=== PATIENT | female | born 2000 | race American Indian/Alaskan Native ===

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

== ENCOUNTER 2019-03-14 15:18 | Inpatient (IN) | payer MEDICAID ==
[2019-03-14] MEDS ORDERED: Sodium Chloride 0.9% 1,000 ML IV ONE (15:58)
--- NOTE | 2019-03-14 15:58 | EDM.PDOC ---
ED HPI GENERAL MEDICAL PROBLEM - General Chief Complaint: Skin Complaint Stated Complaint: ABCESS ON STOMACH AND BACK LEG Time Seen by Provider: 03/14/19 15:51 - History of Present Illness INITIAL COMMENTS - FREE TEXT/NARRATIVE: HISTORY AND PHYSICAL: History of present illness: Patient is a 19-year-old female presents with concern of abdominal wall abscess with spontaneous drainage and cellulitis and worsening over last several days she denies fever chills nausea vomiting Review of systems: As per history of present illness and below otherwise all systems reviewed and negative. Past medical history: As per history of present illness and as reviewed below otherwise noncontributory. Surgical history: As per history of present illness and as reviewed below otherwise noncontributory. Social history: No reported history of drug or alcohol abuse. Family history: As per history of present illness and as reviewed below otherwise noncontributory. Physical exam: HEENT: Atraumatic, normocephalic, pupils reactive, negative for conjunctival pallor or scleral icterus, mucous membranes moist, throat clear, neck supple, nontender, trachea midline. Lungs: Clear to auscultation, breath sounds equal bilaterally, chest nontender. Heart: S1S2, regular, negative for clicks, rubs, or JVD. Abdomen: Soft, nondistended, area of erythema lower abdomen with spontaneous drainage from subcutaneous abscess this area of erythema is approximately 8-10 cm in diameter with warmth and induration noticed.. Negative for masses or hepatosplenomegaly. Negative for costovertebral tenderness. Pelvis: Stable nontender. Genitourinary: Deferred. Rectal: Deferred. Extremities: Atraumatic, negative for cords or calf pain. Neurovascular unremarkable. Neuro: Awake, alert, oriented. Cranial nerves II through XII unremarkable. Cerebellum unremarkable. Motor and sensory unremarkable throughout. Exam nonfocal. Diagnostics: CBC CMP wound culture blood culture 2 ultrasound abdominal wall hCG Therapeutics: Saline 1 L bolus in vancomycin 1 g IV Impression: #1 cellulitis abdominal wall with abscess Definitive disposition and diagnosis as appropriate pending reevaluation and review of above. Abdominal Pain Score (Numeric/FACES): 8 - Related Data Allergies Allergy/AdvReac Type Severity Reaction Status Date / Time No Known Allergies Allergy Verified 03/14/19 15:42 Home Meds: Home Meds . 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: Reports: Other (See Below) Other ADVICE CLERK History: Hyperplasia Musculoskeletal History: Reports: None Neurological History: Reports: None Psychiatric History: Reports: Anxiety, Bipolar, Depression Endocrine/Metabolic History: Reports: Obesity/BMI 30+ Hematologic History: Reports: None Immunologic History: Reports: None Oncologic (Cancer) History: Reports: None Dermatologic History: Reports: None - Infectious Disease History Infectious Disease History: Reports: Chicken Pox - Past Surgical History Head Surgeries/Procedures: Reports: None HEENT Surgical History: Reports: Adenoidectomy, Myringotomy w Tube(s), Tonsillectomy Cardiovascular Surgical History: Reports: None Respiratory Surgical History: Reports: None GI Surgical History: Reports: None Female Surgical History: Reports: D&C Other Female Surgeries/Procedures: hysteroscopy x3 Neurological Surgical History: Reports: None Musculoskeletal Surgical History: Reports: None Oncologic Surgical History: Reports: None Dermatological Surgical History: Reports: None Social & Family History - Family History Family Medical History: Noncontributory Cardiac: Reports: Hypertension, [place] Neurological: Reports: CVA Endocrine/Metabolic: Reports: Diabetes, type II - Tobacco Use Smoking Status *Q: Never Smoker Second Hand Smoke Exposure: No - Caffeine Use Caffeine Use: Reports: Coffee Other Caffeine Use: 5-7 daily Caffeine Use Comment: 2drinks/day - Recreational Drug Use Recreational Drug Use: Yes Recreational Drug Type: Reports: Marijuana/Hashish, Methamphetamine Recreational Drug Use Frequency: Weekly ED ROS GENERAL - Review of Systems Review Of Systems: ROS reveals no pertinent complaints other than HPI. ED EXAM, SKIN/RASH Exam: See Below (See dictation) Course - Vital Signs Last Recorded V/S: Last Vital Signs Temp 37.3 C 03/14/19 15:43 Pulse 107 H 03/14/19 15:43 Resp 16 03/14/19 15:43 BP 128/80 03/14/19 15:43 Pulse Ox 99 03/14/19 15:43 - Orders/Labs/Meds Orders: Active Orders 24 hr Category Date Time Status Abdomen Ltd [US] Stat Exams 03/14/19 15:54 Taken COMPREHENSIVE METABOLIC PN,CMP [CHEM] Stat Lab 03/14/19 Ordered CULTURE BLOOD [BC] Stat Lab 03/14/19 15:54 Ordered CULTURE BLOOD [BC] Stat Lab 03/14/19 15:54 Ordered CULTURE WOUND [RM] Stat Lab 03/14/19 16:03 Received HCG QUALITATIVE,URINE [URCHEM] Stat Lab 03/14/19 15:53 Ordered INR,PT,PROTHROMBIN TIME [COAG] Stat Lab 03/14/19 15:53 Ordered Blood Culture x2 Reflex Set [OM.PC] Stat Oth 03/14/19 15:53 Ordered Labs: Laboratory Tests 03/14/19 Range/Units 16:09 WBC 17.19 H (4.0-11.0) K/uL RBC 5.07 (4.30-5.90) M/uL Hgb 13.2 (12.0-16.0) g/dL Hct 39.4 (36.0-46.0) % MCV 77.7 L (80.0-98.0) fL MCH 26.0 L (27.0-32.0) pg MCHC 33.5 (31.0-37.0) g/dL RDW Std Deviation 40.1 (28.0-62.0) fl RDW Coeff of Elysia 14 (11.0-15.0) % Plt Count 337 (150-400) K/uL MPV 10.50 (7.40-12.00) fL Neut % (Auto) 79.3 (48.0-80.0) % Lymph % (Auto) 10.9 L (16.0-40.0) % [place] % (Auto) 8.8 (0.0-15.0) % Eos % (Auto) 0.8 (0.0-7.0) % Baso % (Auto) 0.2 (0.0-1.5) % Neut # (Auto) 13.6 H (1.4-5.7) K/uL Lymph # (Auto) 1.9 (0.6-2.4) K/uL [place] # (Auto) 1.5 H (0.0-0.8) K/uL Eos # (Auto) 0.1 (0.0-0.7) K/uL Baso # (Auto) 0.0 (0.0-0.1) K/uL Nucleated RBC % 0.0 /100WBC Nucleated RBCs # 0 K/uL Meds: Medications Discontinued Medications Generic Name Dose Route Start Last Admin Trade Name Erlinda PRN Reason Stop Dose Admin Sodium Chloride 1,000 mls @ 999 mls/hr 03/14/19 15:58 03/14/19 17:28 Normal Saline IV 03/14/19 16:58 250 mls/hr STAT ONE Infusion Vancomycin HCl 1 gm/ Sodium 250 mls @ 250 mls/hr 03/14/19 15:58 03/14/19 17: 26 Chloride IV 03/14/19 16:57 250 mls/hr ONETIME ONE Administration Sodium Chloride Confirm 03/14/19 16:57 03/14/19 17:25 Normal Saline Administered 03/14/19 16:58 Not Given Dose 250 mls @ as directed .ROUTE .STK-MED ONE Vancomycin HCl Confirm 03/14/19 16:57 03/14/19 17:25 Vancomycin Administered 03/14/19 16:58 Not Given Dose 1 gm .ROUTE .STK-MED ONE Departure - Departure Time of Disposition: 17:35 Disposition: Admitted As Inpatient 66 Condition: Good Clinical Impression: Cellulitis, Abscess - Discharge Information Referrals: PCP,None [Primary Care Provider] - Forms: ED Department Discharge - My Orders Last 24 Hours: My Active Orders 03/14/19 COMPREHENSIVE METABOLIC PN,CMP [CHEM] Stat 03/14/19 15:53 HCG QUALITATIVE,URINE [URCHEM] Stat INR,PT,PROTHROMBIN TIME [COAG] Stat Blood Culture x2 Reflex Set [OM.PC] Stat 03/14/19 15:54 Abdomen Ltd [US] Stat CULTURE BLOOD [BC] Stat CULTURE BLOOD [BC] Stat 03/14/19 16:03 CULTURE WOUND [RM] Stat - Assessment/Plan Last 24 Hours: My Active Orders 03/14/19 COMPREHENSIVE METABOLIC PN,CMP [CHEM] Stat 03/14/19 15:53 HCG QUALITATIVE,URINE [URCHEM] Stat INR,PT,PROTHROMBIN TIME [COAG] Stat Blood Culture x2 Reflex Set [OM.PC] Stat 03/14/19 15:54 Abdomen Ltd [US] Stat CULTURE BLOOD [BC] Stat CULTURE BLOOD [BC] Stat 03/14/19 16:03 CULTURE WOUND [RM] Stat
[2019-03-14] MEDS ORDERED: Vancomycin 1 GM SDV ONE (16:57)
[2019-03-14] MEDS ORDERED: Sodium Chloride 0.9% 250 ML ONE (16:57)
[2019-03-14] MEDS ORDERED: oxyCODONE 5 MG Tab PO PRN (17:52)
[2019-03-14] MEDS ORDERED: Acetaminophen 325 MG Tab PO PRN (17:52)
[2019-03-14] MEDS ORDERED: Polyethylene Glycol 3350 Powder 17 GM Packet PO PRN (17:52)
[2019-03-14] MEDS ORDERED: Docusate Sodium 100 MG Cap PO PRN (17:52)
[2019-03-14] MEDS ORDERED: Morphine 10 MG/ML Syringe IVPUSH PRN (17:52)
[2019-03-14] MEDS ORDERED: Ondansetron 4 MG Tab.DIS PO PRN (17:52)
[2019-03-14 18:47] LABS: CHLORIDE,CL 101 mmol/L (98-107); SODIUM,NA 135 mmol/L (136-145)
--- NOTE | 2019-03-14 19:35 | PCM.HP ---
H&P History of Present Illness - General Date of Service: 03/14/19 Admit Problem/Dx: Admission Diagnosis/Problem Admission Diagnosis/Problem Cellulitis - History of Present Illness Initial Comments - Free Text/Narative: 19 y/o female with history of polysubstance abuse who presented to the ER complaining of worsening abdominal pain. States that about 2-3 days she had a pustule on her pannus area and she popped it, however, soon after that she started noticing erythema, warmth and pain on her pannus area. In addition, started to notice some additional drainage. Denies any dysuria, diarrhea, blood in stool. No nausea, vomiting. Rates pain 8/10, worse with direct pressure. No rashes or pain anywhere else on body. In the ER , she received one dose of vancomycin and abdominal U/S which results are pending. Abdominal Pain Score (Numeric/FACES): 8 - Related Data Allergies/Adverse Reactions: Allergies Allergy/AdvReac Type Severity Reaction Status Date / Time No Known Allergies Allergy Verified 03/14/19 15:42 Home Medications: Home Meds . 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 (See Below) Other OB/BYN History: Hyperplasia Musculoskeletal History: Reports: None Neurological History: Reports: None Psychiatric History: Reports: Anxiety, Bipolar, Depression Endocrine/Metabolic History: Reports: Obesity/BMI 30+ Hematologic History: Reports: None Immunologic History: Reports: None Oncologic (Cancer) History: Reports: None Dermatologic History: Reports: None - Infectious Disease History Infectious Disease History: Reports: Chicken Pox - Past Surgical History Head Surgeries/Procedures: Reports: None HEENT Surgical History: Reports: Adenoidectomy, Myringotomy w Tube(s), Tonsillectomy Cardiovascular Surgical History: Reports: None Respiratory Surgical History: Reports: None GI Surgical History: Reports: None Female Surgical History: Reports: D&C Other Female Surgeries/Procedures: hysteroscopy x3 Neurological Surgical History: Reports: None Musculoskeletal Surgical History: Reports: None Oncologic Surgical History: Reports: None Dermatological Surgical History: Reports: None Social & Family History - Family History Family Medical History: Noncontributory Cardiac: Reports: Hypertension, [place] Neurological: Reports: CVA Endocrine/Metabolic: Reports: Diabetes, type II - Tobacco Use Smoking Status *Q: Never Smoker Second Hand Smoke Exposure: No - Caffeine Use Caffeine Use: Reports: Coffee Other Caffeine Use: 5-7 daily Caffeine Use Comment: 2drinks/day - Recreational Drug Use Recreational Drug Use: Yes Recreational Drug Type: Reports: Marijuana/Hashish, Methamphetamine Recreational Drug Use Frequency: Weekly H&P Review of Systems - Review of Systems: Review Of Systems: See Below Exam - Exam Exam: See Below - Vital Signs Vital Signs: Last Vital Signs Temp 37.3 C 03/14/19 15:43 Pulse 88 03/14/19 19:12 Resp 16 03/14/19 19:12 BP 124/74 03/14/19 19:12 Pulse Ox 98 03/14/19 19:12 Weight: 97.522 kg - Exam General: Alert, Oriented, Cooperative HEENT: Conjunctiva Clear, Mucosa Moist & Mabel Lungs: Clear to Auscultation, Normal Respiratory Effort. No: Crackles, Wheezing Cardiovascular: Regular Rate, Regular Rhythm GI/Abdominal Exam: Other (erythematous, warm area of cellulitis with area of enduration and drainage.) Extremities: Normal Inspection, No Pedal Edema Skin: Warm, Dry - Patient Data Lab Results Last 24 hrs: Laboratory Results - last 24 hr 03/14/19 03/14/19 03/14/19 Range/Units 16:09 18:16 18:16 WBC 17.19 H (4.0-11.0) K/uL RBC 5.07 (4.30-5.90) M/uL Hgb 13.2 (12.0-16.0) g/dL Hct 39.4 (36.0-46.0) % MCV 77.7 L (80.0-98.0) fL MCH 26.0 L (27.0-32.0) pg MCHC 33.5 (31.0-37.0) g/dL RDW Std Deviation 40.1 (28.0-62.0) fl RDW Coeff of Elysia 14 (11.0-15.0) % Plt Count 337 (150-400) K/uL MPV 10.50 (7.40-12.00) fL Neut % (Auto) 79.3 (48.0-80.0) % Lymph % (Auto) 10.9 L (16.0-40.0) % [place] % (Auto) 8.8 (0.0-15.0) % Eos % (Auto) 0.8 (0.0-7.0) % Baso % (Auto) 0.2 (0.0-1.5) % Neut # (Auto) 13.6 H (1.4-5.7) K/uL Lymph # (Auto) 1.9 (0.6-2.4) K/uL [place] # (Auto) 1.5 H (0.0-0.8) K/uL Eos # (Auto) 0.1 (0.0-0.7) K/uL Baso # (Auto) 0.0 (0.0-0.1) K/uL Nucleated RBC % 0.0 /100WBC Nucleated RBCs # 0 K/uL INR 1.20 Sodium 135 L (136-145) mmol/L Potassium 3.6 (3.5-5.1) mmol/L Chloride 101 (98-107) mmol/L Carbon Dioxide 25.1 (21.0-32.0) mmol/L BUN 6 L (7.0-18.0) mg/dL Creatinine 0.7 (0.6-1.0) mg/dL Est Cr Clr Drug Dosing 110.70 mL/min Estimated GFR (MDRD) > 60.0 ml/min Glucose 102 (74-106) mg/dL Calcium 8.4 L (8.5-10.1) mg/dL Total Bilirubin 0.7 (0.2-1.0) mg/dL AST 10 L (15-37) IU/L ALT 9 L (14-63) IU/L Alkaline Phosphatase 96 (46-116) U/L Total Protein 7.4 (6.4-8.2) g/dL Albumin 2.7 L (3.4-5.0) g/dL Globulin 4.7 H (2.6-4.0) g/dL Albumin/Globulin Ratio 0.6 L (0.9-1.6) Result Diagrams: 03/14/19 16:09 03/14/19 18:16 Problem List Initiated/Reviewed/Updated: Yes Orders Last 24hrs: Active Orders 24 hr Category Date Time Status Patient Status [ADT] Stat ADT 03/14/19 17:37 Active Antiembolic Devices [RC] PER UNIT ROUTINE Care 03/14/19 17:54 Active Intake and Output [RC] QSHIFT Care 03/14/19 17:52 Active Notify Provider Consults [RC] ASDIRECTED Care 03/14/19 19:27 Active Oxygen Therapy [RC] PRN Care 03/14/19 17:52 Active Up ad Lillian [RC] ASDIRECTED Care 03/14/19 17:52 Active VTE/DVT Education [RC] PER UNIT ROUTINE Care 03/14/19 17:52 Active Vital Signs [RC] Q4H Care 03/14/19 17:52 Active Consult to Physician [CONS] Routine Cons 03/14/19 19:26 Active Regular Diet [DIET] Diet 03/14/19 Breakfast Active Abdomen Ltd [US] Stat Exams 03/14/19 15:54 Taken CULTURE BLOOD [BC] Stat Lab 03/14/19 18:16 Received CULTURE BLOOD [BC] Stat Lab 03/14/19 18:47 Received CULTURE WOUND [RM] Stat Lab 03/14/19 16:03 Received HCG QUALITATIVE,URINE [URCHEM] Stat Lab 03/14/19 15:53 Ordered UA RFX JEROMY AND CULT IF INDIC [URIN] Routine Lab 03/14/19 18:36 Ordered Acetaminophen [Tylenol] Med 03/14/19 17:52 Active 650 mg PO Q4H PRN Docusate Sodium [Colace] Med 03/14/19 17:52 Active 100 mg PO BID PRN Morphine Med 03/14/19 17:52 Active 2 mg IVPUSH Q2H PRN Ondansetron [Zofran ODT] Med 03/14/19 17:52 Active 4 mg PO Q4H PRN Polyethylene Glycol 3350 [MiraLAX] Med 03/14/19 17:52 Active 17 gm PO DAILY PRN Vancomycin 1 gm Med 03/15/19 06:00 Active Vancomycin 500 mg Sodium Chloride 0.9% [Normal Saline] 500 ml IV Q12H oxyCODONE Med 03/14/19 17:52 Active 5 mg PO Q4H PRN Blood Culture x2 Reflex Set [OM.PC] Stat Oth 03/14/19 15:53 Ordered Sequential Compression Device [OM.PC] Per Unit Routine Oth 03/14/19 17:53 Ordered Resuscitation Status Routine Resus Stat 03/14/19 17:52 Ordered Medication Orders Acetaminophen (Tylenol) 650 mg PO Q4H PRN PRN Reason: Pain (Mild 1-3)/fever Docusate Sodium (Colace) 100 mg PO BID PRN PRN Reason: Constipation Vancomycin HCl 1 gm/Vancomycin HCl 500 mg/ Sodium Chloride 500 mls @ 333 mls/ hr IV Q12H DASHA Morphine Sulfate (Morphine) 2 mg IVPUSH Q2H PRN PRN Reason: Pain (severe 7-10) Stop: 03/15/19 17:53 Ondansetron HCl (Zofran Odt) 4 mg PO Q4H PRN PRN Reason: nausea, able to take PO Oxycodone HCl (Oxycodone) 5 mg PO Q4H PRN PRN Reason: Pain (moderate 4-6) Polyethylene Glycol (Miralax) 17 gm PO DAILY PRN PRN Reason: Constipation Assessment/Plan Comment:: A: 1. Cellulitis 2. Leukocytosis P: 1. Cellulitis with possible abscess- pending U/S results. Will continue with Vancomycin 1 g IV Q12H for now. I consulted with General Surgery who will see patient in the morning. Dispo;1-2 days
--- NOTE | 2019-03-14 19:52 | US ---
Indication: Lower abdominal abscess Technique: Ultrasound abdomen limited with color Doppler analysis. Comparison: None Findings/Impression: In the right lower abdomen region of interest is an irregular area of fluid/edema measuring 7 x 4 x 2 cm. Hyperemic consistent with inflammation is present about the fluid. This lesion would be consistent with a phlegmon. There is no defined abscess at this time. No other abnormality. Dictated by Elvin Long MD @ Mar 14 2019 7:46PM Signed by Dr. Elvin Long @ Mar 14 2019 7:51PM
[2019-03-15] MEDS ORDERED: Vancomycin 1 GM SDV ONE (04:52)
[2019-03-15] MEDS ORDERED: Sodium Chloride 0.9% 250 ML ONE (04:53)
[2019-03-15 05:58] LABS: CHLORIDE,CL 103 mmol/L (98-107); SODIUM,NA 138 mmol/L (136-145)
[2019-03-15] MEDS ORDERED: Vancomycin 1 GM, Vancomycin 500 MG in Sodium Chloride 0.9% 500 ML IV SCH (06:00)
[2019-03-15] MEDS ORDERED: Potassium Chloride 20 MEQ Tab.ER PO ONE (09:11)
--- NOTE | 2019-03-15 09:19 | PCM.SN ---
- Free Text/Narrative Note: pt seen, chart reviewed; abd pannus and L lower thigh sub cutaneous infection, will take to OR for surgery i/d tomorrow; please no heparin, and also npo tonight; thanks for the cx; [id number]
--- NOTE | 2019-03-15 11:19 | CONS ---
DATE OF CONSULTATION: 03/15/2019 DATE OF : 2000 PRIMARY CARE PHYSICIAN: None PCP CONCERNING QUESTION: Abdominal abscess. HISTORY OF PRESENT ILLNESS: The patient is a 19-year-old obese lady who has polysubstance abuse and admitted yesterday through the emergency room to the medical service for abdominal infection. Ultrasound was done which shows phlegmon, no abscess, and Surgery was consulted for management. The patient remarked that she has abdominal pain at the pannus for about one week to about 10 day and she cannot stand it anymore. She poked it open, drained something, but after that she felt even worse. Seeking help in the emergency room, now admitted with IV antibiotics. Her white count dropped from 17 to 13. ALLERGIES: Please refer to nursing for details. MEDICATION: Please refer to nursing for details. PAST MEDICAL HISTORY: Significant for no diabetes, [place], CVA, or hypertension. PAST SURGICAL HISTORY: D and C x3, last one was last year. She also had polyp removed from the ovary and also had scope to the uterus. FAMILY HISTORY: Noncontributory. REVIEW OF SYSTEMS: Same as history of present illness. SOCIAL HISTORY: The patient is a smoker. PHYSICAL EXAMINATION: GENERAL: A very pleasant, nice, obese lady, in no acute distress. HEENT: Normocephalic and atraumatic. Sclerae anicteric. LUNGS: Clear to auscultation. HEART: Regular rate and rhythm. ABDOMEN: Soft, nondistended. No pulsating tender midline abdominal structure. The patient has a moderate-sized pannus hanging down little bit above the michelle little bit to the right of the umbilicus. There is opening and also extensive erythema. The opening upon exam draining bloody and cloudy drainage. Upon seeing the patient, the patient also mentioned that she had another area; one is on the right buttock and that one is not red and no expressed material, nontender. That one looked like just a skin sloughing off. On the left lower thigh, there is another infection, and upon examination, squeezed out purulent material. IMPRESSION AND PLAN: Subcu abscess in 2 area; one in the abdominal pannus, another one is in the left lower thigh. We will take her to operating room for incision and drainage. After that, the patient will need to have a means to manage the wound by dressing change every day probably to two week. The patient usually good enough to go home after I and D. Plan has been discussed with the medical team as well as the patient, both concurred to proceed as planned. Please do not put the patient on any subcu heparin and also n.p.o. after midnight. As always, thank you for the kind referral. CADE LUZ /[id number]
[2019-03-15] MEDS: cefTRIAXone 1 GM in Premix Bag 1 BAG IV SCH ×2 (11:48→16:24)
--- NOTE | 2019-03-15 12:01 | PCM.PN ---
- General Info Date of Service: 03/15/19 Subjective Update: No acute events overnight. Afebrile. Patient states she feels better this morning. Pain better controlled, however, she has been refusing IV placement and states that she may leave AMA later today.I spoke with the patient and recommended to stay to receive IV antibiotics and I&D tomorrow. However, she states she will think about it and let me, staff know later today. - Patient Data Vitals - Most Recent: Last Vital Signs Temp 37.0 C 03/15/19 08:03 Pulse 76 03/15/19 08:03 Resp 16 03/15/19 08:03 BP 118/71 03/15/19 08:03 Pulse Ox 96 03/15/19 08:03 Weight - Most Recent: 95.39 kg I&O - Last 24 Hours: Intake & Output 03/14/19 03/15/19 03/15/19 22:59 06:59 14:59 Intake Total 1900 Balance 1900 Lab Results Last 24 Hours: Laboratory Results - last 24 hr 03/14/19 03/14/19 03/14/19 Range/Units 16:09 18:16 18:16 WBC 17.19 H (4.0-11.0) K/uL RBC 5.07 (4.30-5.90) M/uL Hgb 13.2 (12.0-16.0) g/dL Hct 39.4 (36.0-46.0) % MCV 77.7 L (80.0-98.0) fL MCH 26.0 L (27.0-32.0) pg MCHC 33.5 (31.0-37.0) g/dL RDW Std Deviation 40.1 (28.0-62.0) fl RDW Coeff of Elysia 14 (11.0-15.0) % Plt Count 337 (150-400) K/uL MPV 10.50 (7.40-12.00) fL Neut % (Auto) 79.3 (48.0-80.0) % Lymph % (Auto) 10.9 L (16.0-40.0) % Union % (Auto) 8.8 (0.0-15.0) % Eos % (Auto) 0.8 (0.0-7.0) % Baso % (Auto) 0.2 (0.0-1.5) % Neut # (Auto) 13.6 H (1.4-5.7) K/uL Lymph # (Auto) 1.9 (0.6-2.4) K/uL Union # (Auto) 1.5 H (0.0-0.8) K/uL Eos # (Auto) 0.1 (0.0-0.7) K/uL Baso # (Auto) 0.0 (0.0-0.1) K/uL Nucleated RBC % 0.0 /100WBC Nucleated RBCs # 0 K/uL INR 1.20 Sodium 135 L (136-145) mmol/L Potassium 3.6 (3.5-5.1) mmol/L Chloride 101 (98-107) mmol/L Carbon Dioxide 25.1 (21.0-32.0) mmol/L BUN 6 L (7.0-18.0) mg/dL Creatinine 0.7 (0.6-1.0) mg/dL Est Cr Clr Drug Dosing 110.70 mL/min Estimated GFR (MDRD) > 60.0 ml/min Glucose 102 (74-106) mg/dL Calcium 8.4 L (8.5-10.1) mg/dL Iron (50-175) ug/dL TIBC (250-450) ug/dL % Saturation (20-55) % Ferritin (8-252) ng/mL Total Bilirubin 0.7 (0.2-1.0) mg/dL AST 10 L (15-37) IU/L ALT 9 L (14-63) IU/L Alkaline Phosphatase 96 (46-116) U/L Total Protein 7.4 (6.4-8.2) g/dL Albumin 2.7 L (3.4-5.0) g/dL Globulin 4.7 H (2.6-4.0) g/dL Albumin/Globulin Ratio 0.6 L (0.9-1.6) Urine Color Urine Appearance Urine pH (5.0-8.0) Ur Specific [place] (1.001-1.035) Urine Protein (NEGATIVE) mg/dL Urine Glucose (UA) (NEGATIVE) mg/dL Urine Ketones (NEGATIVE) mg/dL Urine Occult Blood (NEGATIVE) Urine Nitrite (NEGATIVE) Urine Bilirubin (NEGATIVE) Urine Urobilinogen (<2.0) EU/dL Ur Leukocyte Esterase (NEGATIVE) Urine RBC (0-2/HPF) Urine WBC (0-5/HPF) Ur Epithelial Cells (NONE-FEW) Urine Bacteria (NEGATIVE) Urine HCG, Qual (NEGATIVE) 03/15/19 03/15/19 03/15/19 Range/Units 05:25 05:25 05:25 WBC 13.45 H (4.0-11.0) K/uL RBC 4.17 L (4.30-5.90) M/uL Hgb 10.5 L (12.0-16.0) g/dL Hct 32.6 L (36.0-46.0) % MCV 78.2 L (80.0-98.0) fL MCH 25.2 L (27.0-32.0) pg MCHC 32.2 (31.0-37.0) g/dL RDW Std Deviation 40.4 (28.0-62.0) fl RDW Coeff of Elysia 14 (11.0-15.0) % Plt Count 316 (150-400) K/uL MPV 10.10 (7.40-12.00) fL Neut % (Auto) 74.5 (48.0-80.0) % Lymph % (Auto) 16.7 (16.0-40.0) % Union % (Auto) 7.6 (0.0-15.0) % Eos % (Auto) 1.1 (0.0-7.0) % Baso % (Auto) 0.1 (0.0-1.5) % Neut # (Auto) 10.0 H (1.4-5.7) K/uL Lymph # (Auto) 2.3 (0.6-2.4) K/uL Union # (Auto) 1.0 H (0.0-0.8) K/uL Eos # (Auto) 0.2 (0.0-0.7) K/uL Baso # (Auto) 0.0 (0.0-0.1) K/uL Nucleated RBC % 0.0 /100WBC Nucleated RBCs # 0 K/uL INR Sodium 138 (136-145) mmol/L Potassium 3.3 L (3.5-5.1) mmol/L Chloride 103 (98-107) mmol/L Carbon Dioxide 28.4 (21.0-32.0) mmol/L BUN 7 (7.0-18.0) mg/dL Creatinine 0.6 (0.6-1.0) mg/dL Est Cr Clr Drug Dosing 129.15 mL/min Estimated GFR (MDRD) > 60.0 ml/min Glucose 133 H (74-106) mg/dL Calcium 8.3 L (8.5-10.1) mg/dL Iron 16 L (50-175) ug/dL TIBC 182 L (250-450) ug/dL % Saturation 8.79 L (20-55) % Ferritin 203 (8-252) ng/mL Total Bilirubin (0.2-1.0) mg/dL AST (15-37) IU/L ALT (14-63) IU/L Alkaline Phosphatase (46-116) U/L Total Protein (6.4-8.2) g/dL Albumin (3.4-5.0) g/dL Globulin (2.6-4.0) g/dL Albumin/Globulin Ratio (0.9-1.6) Urine Color Urine Appearance Urine pH (5.0-8.0) Ur Specific [place] (1.001-1.035) Urine Protein (NEGATIVE) mg/dL Urine Glucose (UA) (NEGATIVE) mg/dL Urine Ketones (NEGATIVE) mg/dL Urine Occult Blood (NEGATIVE) Urine Nitrite (NEGATIVE) Urine Bilirubin (NEGATIVE) Urine Urobilinogen (<2.0) EU/dL Ur Leukocyte Esterase (NEGATIVE) Urine RBC (0-2/HPF) Urine WBC (0-5/HPF) Ur Epithelial Cells (NONE-FEW) Urine Bacteria (NEGATIVE) Urine HCG, Qual (NEGATIVE) 03/15/19 03/15/19 Range/Units 05:40 05:40 WBC (4.0-11.0) K/uL RBC (4.30-5.90) M/uL Hgb (12.0-16.0) g/dL Hct (36.0-46.0) % MCV (80.0-98.0) fL MCH (27.0-32.0) pg MCHC (31.0-37.0) g/dL RDW Std Deviation (28.0-62.0) fl RDW Coeff of Elysia (11.0-15.0) % Plt Count (150-400) K/uL MPV (7.40-12.00) fL Neut % (Auto) (48.0-80.0) % Lymph % (Auto) (16.0-40.0) % Union % (Auto) (0.0-15.0) % Eos % (Auto) (0.0-7.0) % Baso % (Auto) (0.0-1.5) % Neut # (Auto) (1.4-5.7) K/uL Lymph # (Auto) (0.6-2.4) K/uL Union # (Auto) (0.0-0.8) K/uL Eos # (Auto) (0.0-0.7) K/uL Baso # (Auto) (0.0-0.1) K/uL Nucleated RBC % /100WBC Nucleated RBCs # K/uL INR Sodium (136-145) mmol/L Potassium (3.5-5.1) mmol/L Chloride (98-107) mmol/L Carbon Dioxide (21.0-32.0) mmol/L BUN (7.0-18.0) mg/dL Creatinine (0.6-1.0) mg/dL Est Cr Clr Drug Dosing mL/min Estimated GFR (MDRD) ml/min Glucose (74-106) mg/dL Calcium (8.5-10.1) mg/dL Iron (50-175) ug/dL TIBC (250-450) ug/dL % Saturation (20-55) % Ferritin (8-252) ng/mL Total Bilirubin (0.2-1.0) mg/dL AST (15-37) IU/L ALT (14-63) IU/L Alkaline Phosphatase (46-116) U/L Total Protein (6.4-8.2) g/dL Albumin (3.4-5.0) g/dL Globulin (2.6-4.0) g/dL Albumin/Globulin Ratio (0.9-1.6) Urine Color YELLOW Urine Appearance SLT CLOUDY Urine pH 6.0 (5.0-8.0) Ur Specific [place] 1.010 (1.001-1.035) Urine Protein NEGATIVE (NEGATIVE) mg/dL Urine Glucose (UA) NEGATIVE (NEGATIVE) mg/dL Urine Ketones TRACE H (NEGATIVE) mg/dL Urine Occult Blood MODERATE H (NEGATIVE) Urine Nitrite NEGATIVE (NEGATIVE) Urine Bilirubin NEGATIVE (NEGATIVE) Urine Urobilinogen 1.0 (<2.0) EU/dL Ur Leukocyte Esterase SMALL H (NEGATIVE) Urine RBC 1-3 (0-2/HPF) Urine WBC 4-7 (0-5/HPF) Ur Epithelial Cells MODERATE (NONE-FEW) Urine Bacteria RARE (NEGATIVE) Urine HCG, Qual NEGATIVE (NEGATIVE) Med Orders - Current: Current Medications Acetaminophen (Tylenol) 650 mg PO Q4H PRN PRN Reason: Pain (Mild 1-3)/fever Docusate Sodium (Colace) 100 mg PO BID PRN PRN Reason: Constipation Vancomycin HCl 1 gm/Vancomycin HCl 500 mg/ Sodium Chloride 500 mls @ 333 mls/ hr IV Q12H [facility] Last Admin: 03/15/19 05:50 Dose: 333 mls/hr Lactated Ringer's (Ringers, Lactated) 1,000 mls @ 125 mls/hr IV ASDIRECTED [facility] Ceftriaxone Sodium/Dextrose 1 (gm/ Premix) 50 mls @ 100 mls/hr IV Q24H [facility] Last Admin: 03/15/19 11:48 Dose: 100 mls/hr Morphine Sulfate (Morphine) 2 mg IVPUSH Q2H PRN PRN Reason: Pain (severe 7-10) Stop: 03/15/19 17:53 Ondansetron HCl (Zofran Odt) 4 mg PO Q4H PRN PRN Reason: nausea, able to take PO Oxycodone HCl (Oxycodone) 5 mg PO Q4H PRN PRN Reason: Pain (moderate 4-6) Polyethylene Glycol (Miralax) 17 gm PO DAILY PRN PRN Reason: Constipation Discontinued Medications Sodium Chloride (Normal Saline) 1,000 mls @ 999 mls/hr IV STAT ONE Stop: 03/14/19 16:58 Last Infusion: 03/14/19 18:32 Dose: 999 mls/hr Vancomycin HCl 1 gm/ Sodium (Chloride) 250 mls @ 250 mls/hr IV ONETIME ONE Stop: 03/14/19 16:57 Last Admin: 03/14/19 17:26 Dose: 250 mls/hr Sodium Chloride (Normal Saline) Confirm Administered Dose 250 mls @ as directed .ROUTE .STK-MED ONE Stop: 03/14/19 16:58 Last Admin: 03/14/19 17:25 Dose: Not Given Sodium Chloride (Normal Saline) Confirm Administered Dose 250 mls @ as directed .ROUTE .STK-MED ONE Stop: 03/15/19 04:54 Last Admin: 03/15/19 05:04 Dose: Not Given Potassium Chloride (Klor-Con M20) 40 meq PO ONETIME ONE Stop: 03/15/19 09:12 Last Admin: 03/15/19 10:29 Dose: 40 meq Vancomycin HCl (Vancomycin) Confirm Administered Dose 1 gm .ROUTE .STK-MED ONE Stop: 03/14/19 16:58 Last Admin: 03/14/19 17:25 Dose: Not Given Vancomycin HCl (Vancomycin) Confirm Administered Dose 1 gm .ROUTE .STK-MED ONE Stop: 03/15/19 04:53 Last Admin: 03/15/19 05:04 Dose: Not Given - Exam General: Alert, Oriented, Cooperative, No Acute Distress Lungs: Clear to Auscultation, Normal Respiratory Effort. No: Crackles, Wheezing Cardiovascular: Regular Rate, Regular Rhythm GI/Abdominal Exam: Other (area of cellulitis has increaed compared to yesterday. splitter tender. In addition, patient shares that she has another area of infection on her left posterior thigh.) - Problem List Review Problem List Initiated/Reviewed/Updated: Yes - My Orders Last 24 Hours: My Active Orders 03/14/19 17:52 Intake and Output [RC] Q12H Oxygen Therapy [RC] PRN Up ad Lillian [RC] ASDIRECTED VTE/DVT Education [RC] PER UNIT ROUTINE Vital Signs [RC] Q4H Acetaminophen [Tylenol] 650 mg PO Q4H PRN Docusate Sodium [Colace] 100 mg PO BID PRN Morphine 2 mg IVPUSH Q2H PRN Ondansetron [Zofran ODT] 4 mg PO Q4H PRN Polyethylene Glycol 3350 [MiraLAX] 17 gm PO DAILY PRN oxyCODONE 5 mg PO Q4H PRN Resuscitation Status Routine 03/14/19 17:53 Sequential Compression Device [OM.PC] Per Unit Routine 03/14/19 17:54 Antiembolic Devices [RC] PER UNIT ROUTINE 03/14/19 19:26 Consult to Physician [CONS] Routine 03/14/19 19:27 Notify Provider Consults [RC] ASDIRECTED 03/15/19 05:40 CULTURE URINE [RM] Routine 03/15/19 06:00 Vancomycin 1 gm Vancomycin 500 mg Sodium Chloride 0.9% [Normal Saline] 500 ml IV Q12H 03/15/19 09:11 OCCULT BLOOD DIAGNOSTIC [OP] Routine - Plan Plan:: A: 1. Cellulitis 2. UTI 3. Hypokalemia 2. Leukocytosis, improving P: 1. Cellulitis- Abdominal U/S showed phlegmon and possible developing abscess. Dr. Cartwright was consulted and is planning to do I&D tomorrow morning. Patient will be NPO at midnight. Will avoid heparin. Continue with Vancomycin for now as patient permits. 2. UTI- will start Ceftriaxone, however, nursing staff has informed me that patient has been declining IV placement since original infiltrated. Will speak with patient. Dispo:1-2 days.
[2019-03-15 12:49] VITALS: BP 112/76
--- NOTE | 2019-03-15 17:02 | PCM.SN ---
- Free Text/Narrative Note: pt rather leave AMA because of upset about IV line; came by to explain to pt, surgery was scheduled as inpatient, and pt would get well better with iv abx coupled with surgery id; pt explained to the doctor, "my boyfriend has the same infection, and he refused surgery, take meds, and 5 days later, all healed" It is ok to have pt followed up in my office to assess disease process; would dc pt on po abx; thanks for the consult; and surgery scheduled is now cancelled.
--- NOTE | 2019-03-15 17:59 | PCM.DCSUM1 ---
Discharge Summary - Hospital Course Free Text/Narrative:: 19 y/o female admitted for abdominal cellulitis with possible abscess. She was started on Vancomycin and General Surgery was consulted for possible I&D. The patient did well over night. Her WBC was decreasing and she remained afebrile. However, the patient decided to leave AMA since she was getting upset about getting poked and trying to restart an IV line since previous had infiltrated. Patient declined IV medications during the day. Myself and the nursing staff met with the patient several times to explain our recommendation to stay and get IV antibiotics and have the scheduled I&D the following day, however, the patient refused and was adamant in leaving. The patient left AMA. I prescribed her Bactrim and Clindamycin and she was set up with an outpatient follow-up with general surgery. - Discharge Data Discharge Date: 03/15/19 Discharge Disposition: Against Medical Advice 07 Condition: Fair - Patient Summary/Data Consults: Consultations 03/14/19 19:26 Consult to Physician [CONS] Routine - Patient Instructions Diet: Regular Diet as Tolerated Activity: As Tolerated Notify Provider of: Fever, Increased Pain, Swelling and Redness, Drainage, Nausea and/or Vomiting - Discharge Plan *PRESCRIPTION DRUG MONITORING PROGRAM REVIEWED*: Not Applicable *COPY OF PRESCRIPTION DRUG MONITORING REPORT IN PATIENT LEXI: Not Applicable Prescriptions/Med Rec: Clindamycin HCl 300 mg PO TID 10 Days #30 capsule Sulfamethoxazole/Trimethoprim [Bactrim Ds Tablet] 1 each PO BID 10 Days #20 tablet Home Medications: Home Meds Clindamycin HCl 300 mg PO TID 10 Days #30 capsule 03/15/19 [Rx] Sulfamethoxazole/Trimethoprim [Bactrim Ds Tablet] 1 each PO BID 10 Days #20 tablet 03/15/19 [Rx] Patient Handouts: Skin Abscess, Clindamycin capsules, Cellulitis, Adult, Easy- to-Read, Sulfamethoxazole; Trimethoprim, SMX-TMP tablets Referrals: Gilmar Cartwright MD [Physician] - 03/19/19 11:15 am - Discharge Summary/Plan Comment DC Time >30 min.: No - Patient Data Vitals - Most Recent: Last Vital Signs Temp 36.7 C 03/15/19 12:00 Pulse 79 03/15/19 12:00 Resp 16 03/15/19 12:00 BP 112/76 03/15/19 12:00 Pulse Ox 96 03/15/19 12:00 Weight - Most Recent: 95.39 kg I&O - Last 24 hours: Intake & Output 03/15/19 03/15/19 03/15/19 06:59 14:59 22:59 Intake Total 1900 1200 Output Total 800 Balance 1900 400 Lab Results - Last 24 hrs: Laboratory Results - last 24 hr 03/14/19 03/14/19 03/15/19 Range/Units 18:16 18:16 05:25 WBC 13.45 H (4.0-11.0) K/uL RBC 4.17 L (4.30-5.90) M/uL Hgb 10.5 L (12.0-16.0) g/dL Hct 32.6 L (36.0-46.0) % MCV 78.2 L (80.0-98.0) fL MCH 25.2 L (27.0-32.0) pg MCHC 32.2 (31.0-37.0) g/dL RDW Std Deviation 40.4 (28.0-62.0) fl RDW Coeff of Elysia 14 (11.0-15.0) % Plt Count 316 (150-400) K/uL MPV 10.10 (7.40-12.00) fL Neut % (Auto) 74.5 (48.0-80.0) % Lymph % (Auto) 16.7 (16.0-40.0) % Edgar % (Auto) 7.6 (0.0-15.0) % Eos % (Auto) 1.1 (0.0-7.0) % Baso % (Auto) 0.1 (0.0-1.5) % Neut # (Auto) 10.0 H (1.4-5.7) K/uL Lymph # (Auto) 2.3 (0.6-2.4) K/uL Edgar # (Auto) 1.0 H (0.0-0.8) K/uL Eos # (Auto) 0.2 (0.0-0.7) K/uL Baso # (Auto) 0.0 (0.0-0.1) K/uL Nucleated RBC % 0.0 /100WBC Nucleated RBCs # 0 K/uL INR 1.20 Sodium 135 L (136-145) mmol/L Potassium 3.6 (3.5-5.1) mmol/L Chloride 101 (98-107) mmol/L Carbon Dioxide 25.1 (21.0-32.0) mmol/L BUN 6 L (7.0-18.0) mg/dL Creatinine 0.7 (0.6-1.0) mg/dL Est Cr Clr Drug Dosing 110.70 mL/min Estimated GFR (MDRD) > 60.0 ml/min Glucose 102 (74-106) mg/dL Calcium 8.4 L (8.5-10.1) mg/dL Iron (50-175) ug/dL TIBC (250-450) ug/dL % Saturation (20-55) % Ferritin (8-252) ng/mL Total Bilirubin 0.7 (0.2-1.0) mg/dL AST 10 L (15-37) IU/L ALT 9 L (14-63) IU/L Alkaline Phosphatase 96 (46-116) U/L Total Protein 7.4 (6.4-8.2) g/dL Albumin 2.7 L (3.4-5.0) g/dL Globulin 4.7 H (2.6-4.0) g/dL Albumin/Globulin Ratio 0.6 L (0.9-1.6) Urine Color Urine Appearance Urine pH (5.0-8.0) Ur Specific [place] (1.001-1.035) Urine Protein (NEGATIVE) mg/dL Urine Glucose (UA) (NEGATIVE) mg/dL Urine Ketones (NEGATIVE) mg/dL Urine Occult Blood (NEGATIVE) Urine Nitrite (NEGATIVE) Urine Bilirubin (NEGATIVE) Urine Urobilinogen (<2.0) EU/dL Ur Leukocyte Esterase (NEGATIVE) Urine RBC (0-2/HPF) Urine WBC (0-5/HPF) Ur Epithelial Cells (NONE-FEW) Urine Bacteria (NEGATIVE) Urine HCG, Qual (NEGATIVE) 03/15/19 03/15/19 03/15/19 Range/Units 05:25 05:25 05:40 WBC (4.0-11.0) K/uL RBC (4.30-5.90) M/uL Hgb (12.0-16.0) g/dL Hct (36.0-46.0) % MCV (80.0-98.0) fL MCH (27.0-32.0) pg MCHC (31.0-37.0) g/dL RDW Std Deviation (28.0-62.0) fl RDW Coeff of Elysia (11.0-15.0) % Plt Count (150-400) K/uL MPV (7.40-12.00) fL Neut % (Auto) (48.0-80.0) % Lymph % (Auto) (16.0-40.0) % Edgar % (Auto) (0.0-15.0) % Eos % (Auto) (0.0-7.0) % Baso % (Auto) (0.0-1.5) % Neut # (Auto) (1.4-5.7) K/uL Lymph # (Auto) (0.6-2.4) K/uL Edgar # (Auto) (0.0-0.8) K/uL Eos # (Auto) (0.0-0.7) K/uL Baso # (Auto) (0.0-0.1) K/uL Nucleated RBC % /100WBC Nucleated RBCs # K/uL INR Sodium 138 (136-145) mmol/L Potassium 3.3 L (3.5-5.1) mmol/L Chloride 103 (98-107) mmol/L Carbon Dioxide 28.4 (21.0-32.0) mmol/L BUN 7 (7.0-18.0) mg/dL Creatinine 0.6 (0.6-1.0) mg/dL Est Cr Clr Drug Dosing 129.15 mL/min Estimated GFR (MDRD) > 60.0 ml/min Glucose 133 H (74-106) mg/dL Calcium 8.3 L (8.5-10.1) mg/dL Iron 16 L (50-175) ug/dL TIBC 182 L (250-450) ug/dL % Saturation 8.79 L (20-55) % Ferritin 203 (8-252) ng/mL Total Bilirubin (0.2-1.0) mg/dL AST (15-37) IU/L ALT (14-63) IU/L Alkaline Phosphatase (46-116) U/L Total Protein (6.4-8.2) g/dL Albumin (3.4-5.0) g/dL Globulin (2.6-4.0) g/dL Albumin/Globulin Ratio (0.9-1.6) Urine Color Urine Appearance Urine pH (5.0-8.0) Ur Specific [place] (1.001-1.035) Urine Protein (NEGATIVE) mg/dL Urine Glucose (UA) (NEGATIVE) mg/dL Urine Ketones (NEGATIVE) mg/dL Urine Occult Blood (NEGATIVE) Urine Nitrite (NEGATIVE) Urine Bilirubin (NEGATIVE) Urine Urobilinogen (<2.0) EU/dL Ur Leukocyte Esterase (NEGATIVE) Urine RBC (0-2/HPF) Urine WBC (0-5/HPF) Ur Epithelial Cells (NONE-FEW) Urine Bacteria (NEGATIVE) Urine HCG, Qual NEGATIVE (NEGATIVE) 03/15/19 Range/Units 05:40 WBC (4.0-11.0) K/uL RBC (4.30-5.90) M/uL Hgb (12.0-16.0) g/dL Hct (36.0-46.0) % MCV (80.0-98.0) fL MCH (27.0-32.0) pg MCHC (31.0-37.0) g/dL RDW Std Deviation (28.0-62.0) fl RDW Coeff of Elysia (11.0-15.0) % Plt Count (150-400) K/uL MPV (7.40-12.00) fL Neut % (Auto) (48.0-80.0) % Lymph % (Auto) (16.0-40.0) % Edgar % (Auto) (0.0-15.0) % Eos % (Auto) (0.0-7.0) % Baso % (Auto) (0.0-1.5) % Neut # (Auto) (1.4-5.7) K/uL Lymph # (Auto) (0.6-2.4) K/uL Edgar # (Auto) (0.0-0.8) K/uL Eos # (Auto) (0.0-0.7) K/uL Baso # (Auto) (0.0-0.1) K/uL Nucleated RBC % /100WBC Nucleated RBCs # K/uL INR Sodium (136-145) mmol/L Potassium (3.5-5.1) mmol/L Chloride (98-107) mmol/L Carbon Dioxide (21.0-32.0) mmol/L BUN (7.0-18.0) mg/dL Creatinine (0.6-1.0) mg/dL Est Cr Clr Drug Dosing mL/min Estimated GFR (MDRD) ml/min Glucose (74-106) mg/dL Calcium (8.5-10.1) mg/dL Iron (50-175) ug/dL TIBC (250-450) ug/dL % Saturation (20-55) % Ferritin (8-252) ng/mL Total Bilirubin (0.2-1.0) mg/dL AST (15-37) IU/L ALT (14-63) IU/L Alkaline Phosphatase (46-116) U/L Total Protein (6.4-8.2) g/dL Albumin (3.4-5.0) g/dL Globulin (2.6-4.0) g/dL Albumin/Globulin Ratio (0.9-1.6) Urine Color YELLOW Urine Appearance SLT CLOUDY Urine pH 6.0 (5.0-8.0) Ur Specific [place] 1.010 (1.001-1.035) Urine Protein NEGATIVE (NEGATIVE) mg/dL Urine Glucose (UA) NEGATIVE (NEGATIVE) mg/dL Urine Ketones TRACE H (NEGATIVE) mg/dL Urine Occult Blood MODERATE H (NEGATIVE) Urine Nitrite NEGATIVE (NEGATIVE) Urine Bilirubin NEGATIVE (NEGATIVE) Urine Urobilinogen 1.0 (<2.0) EU/dL Ur Leukocyte Esterase SMALL H (NEGATIVE) Urine RBC 1-3 (0-2/HPF) Urine WBC 4-7 (0-5/HPF) Ur Epithelial Cells MODERATE (NONE-FEW) Urine Bacteria RARE (NEGATIVE) Urine HCG, Qual (NEGATIVE) Med Orders - Current: Current Medications Acetaminophen (Tylenol) 650 mg PO Q4H PRN PRN Reason: Pain (Mild 1-3)/fever Docusate Sodium (Colace) 100 mg PO BID PRN PRN Reason: Constipation Vancomycin HCl 1 gm/Vancomycin HCl 500 mg/ Sodium Chloride 500 mls @ 333 mls/ hr IV Q12H [facility] Last Admin: 03/15/19 05:50 Dose: 333 mls/hr Lactated Ringer's (Ringers, Lactated) 1,000 mls @ 125 mls/hr IV ASDIRECTED [facility] Ceftriaxone Sodium/Dextrose 1 (gm/ Premix) 50 mls @ 100 mls/hr IV Q24H [facility] Last Admin: 03/15/19 16:24 Dose: Not Given Ondansetron HCl (Zofran Odt) 4 mg PO Q4H PRN PRN Reason: nausea, able to take PO Oxycodone HCl (Oxycodone) 5 mg PO Q4H PRN PRN Reason: Pain (moderate 4-6) Polyethylene Glycol (Miralax) 17 gm PO DAILY PRN PRN Reason: Constipation Discontinued Medications Sodium Chloride (Normal Saline) 1,000 mls @ 999 mls/hr IV STAT ONE Stop: 03/14/19 16:58 Last Infusion: 03/14/19 18:32 Dose: 999 mls/hr Vancomycin HCl 1 gm/ Sodium (Chloride) 250 mls @ 250 mls/hr IV ONETIME ONE Stop: 03/14/19 16:57 Last Admin: 03/14/19 17:26 Dose: 250 mls/hr Sodium Chloride (Normal Saline) Confirm Administered Dose 250 mls @ as directed .ROUTE .STK-MED ONE Stop: 03/14/19 16:58 Last Admin: 03/14/19 17:25 Dose: Not Given Sodium Chloride (Normal Saline) Confirm Administered Dose 250 mls @ as directed .ROUTE .STK-MED ONE Stop: 03/15/19 04:54 Last Admin: 03/15/19 05:04 Dose: Not Given Morphine Sulfate (Morphine) 2 mg IVPUSH Q2H PRN PRN Reason: Pain (severe 7-10) Stop: 03/15/19 17:53 Potassium Chloride (Klor-Con M20) 40 meq PO ONETIME ONE Stop: 03/15/19 09:12 Last Admin: 03/15/19 10:29 Dose: 40 meq Vancomycin HCl (Vancomycin) Confirm Administered Dose 1 gm .ROUTE .STK-MED ONE Stop: 03/14/19 16:58 Last Admin: 03/14/19 17:25 Dose: Not Given Vancomycin HCl (Vancomycin) Confirm Administered Dose 1 gm .ROUTE .STK-MED ONE Stop: 03/15/19 04:53 Last Admin: 03/15/19 05:04 Dose: Not Given
[2019-03-16] MEDS ORDERED: Lactated Ringers 1,000 ML IV SCH (05:00)
== END 2019-03-15 18:15 | disposition left against medical advice (07) | DRG 603 ==
LOC: MW.ED 15:18 → MW.MS 17:48
PROVIDERS: ADMIT Internal Medicine; ATTEND Internal Medicine
DX: L03.311 Cellulitis of abdominal wall (principal); N39.0 Urinary tract infection, site not specified; F19.10 Other psychoactive substance abuse, uncomplicated; F41.9 Anxiety disorder, unspecified; F31.9 Bipolar disorder, unspecified; E66.9 Obesity, unspecified; L02.211 Cutaneous abscess of abdominal wall; D72.829 Elevated white blood cell count, unspecified; E87.6 Hypokalemia; Z90.89 Acquired absence of other organs; Z68.36 Body mass index [BMI] 36.0-36.9, adult
CPT/HCPCS: 36415; 76705; 76705-26; 80048; 80053; 81001; 81025; 82728; 83550; 85025; 85610; 87040; 87070; 87077; 87086; 87186; 96361; 96365; 99284; 99284-25; A4217; A9270-GY; J0696; J3370; J7040; J7050

== ENCOUNTER 2019-12-01 10:40 | Emergency (ER) | payer MEDICAID ==
--- NOTE | 2019-12-01 11:04 | EDM.PDOC ---
ED HPI GENERAL MEDICAL PROBLEM - General Chief Complaint: General Stated Complaint: FEVER/COUGH/SORE THROAT Time Seen by Provider: 12/01/19 10:43 Source of Information: Reports: Patient History Limitations: Reports: No Limitations - History of Present Illness INITIAL COMMENTS - FREE TEXT/NARRATIVE: HISTORY OF PRESENT ILLNESS: Patient is a 19-year-old female who presents with sore throat, runny nose alternating with nasal congestion, tactile fever and mild cough since yesterday. Denies any rash or neck stiffness. No chest pain or dyspnea. Had one episode of posttussive emesis today, no other vomiting or diarrhea. No abdominal pain. No recent travel or exposure to anyone with known coronavirus. Denies any myalgias. She is here with her boyfriend who is also being seen for similar symptoms and is requesting a work note. REVIEW OF SYSTEMS: Other than the symptoms associated with the present events, the following is reported with regard to recent health: General: (+)tactile fever. HENT: (+) congestion. Respiratory: (+) cough. Cardiovascular: (-) chest pain. GI: (-) abdominal pain. : (-) urinary complaints. Musculoskeletal: (-) other aches or pains. Endocrine: (-) generalized weakness. Neurological: (-) localized weakness. Skin: (-) rash PAST MEDICAL HISTORY: reviewed as per nursing notes SOCIAL HISTORY: reviewed as per nursing notes, MEDICATIONS: Per nurse's note ALLERGIES: Per nurse's note, reviewed by me PHYSICAL EXAMINATION: GENERALIZED APPEARANCE: well developed, well nourished in no distress VITAL SIGNS: Per nurse's note, reviewed by me SKIN: Warm, dry; (-) cyanosis; (-) rash. HEAD: (-) scalp swelling, (-) tenderness. EYES: (-) conjunctival pallor, (-) scleral icterus. ENMT: (-) stridor; mucous membranes moist. No pharyngeal erythema. No exudate. Uvula midline. No phonation changes. No trismus. Airway widely patent. NECK: (-) tenderness, (-) stiffness, no meningismus CHEST AND RESPIRATORY: (-) rales, (-) rhonchi, (-) wheezes; breath sounds equal bilaterally. HEART AND CARDIOVASCULAR: (-) irregularity; (-) murmur, (-) gallop. ABDOMEN AND GI: Soft; (-) tenderness, (-) guarding, (-) rebound, (-) palpable masses, EXTREMITIES: (-) deformity, (-) edema. NEURO AND PSYCH: Alert. Cranial nerves grossly intact; strength symmetric. gait steady DIAGNOSTICS: strep EMERGENCY DEPARTMENT COURSE AND TREATMENT: Patient's condition remained stable during Emergency Department evaluation. Based on history, physical exam, and diagnostic evaluation, the patient has symptoms consistent with acute pharyngitis/URI There is no obvious swelling of the peritonsillar area or abscess. The airway appears patent and respiratory pattern is normal. The patient has no trismus and is tolerating oral food and fluid. I felt that outpatient management with close followup by the patient's primary care provider in 1-2 days was appropriate. The patient's questions were answered, and discharge precautions and reasons to return to the clinic were discussed. The patient understands to return to the ED if symptoms do not improve as discussed, or if symptoms worsen. PLAN AND FOLLOW-UP: Patient received written and verbal instructions regarding this condition. Return to ED immediately with any new or worsening symptoms. Follow up to be arranged by patient with pcp in 1-2 days for further evaluation. Given discharge precautions. Patient expressed verbal understanding. 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 (See Below) Other OUTSIDE ENERGY SALES REPRESENTATIVES History: Hyperplasia Musculoskeletal History: Reports: None Neurological History: Reports: None Psychiatric History: Reports: Anxiety, Bipolar, Depression Endocrine/Metabolic History: Reports: Obesity/BMI 30+ Hematologic History: Reports: None Immunologic History: Reports: None Oncologic (Cancer) History: Reports: None Dermatologic History: Reports: None - Infectious Disease History Infectious Disease History: Reports: Chicken Pox - Past Surgical History Head Surgeries/Procedures: Reports: None HEENT Surgical History: Reports: Adenoidectomy, Myringotomy w Tube(s), Tonsillectomy Cardiovascular Surgical History: Reports: None Respiratory Surgical History: Reports: None GI Surgical History: Reports: None Female Surgical History: Reports: D&C Other Female Surgeries/Procedures: hysteroscopy x3 Neurological Surgical History: Reports: None Musculoskeletal Surgical History: Reports: None Oncologic Surgical History: Reports: None Dermatological Surgical History: Reports: None Social & Family History - Family History Family Medical History: Noncontributory Cardiac: Reports: Hypertension, [place] Neurological: Reports: CVA Endocrine/Metabolic: Reports: Diabetes, type II - Caffeine Use Caffeine Use: Reports: Coffee, Energy Drinks, Soda, Tea Other Caffeine Use: 5-7 daily Caffeine Use Comment: 2drinks/day ED ROS GENERAL - Review of Systems Review Of Systems: See Below (see dictation) ED EXAM, GENERAL - Physical Exam Exam: See Below (see dictation) Course - Vital Signs Last Recorded V/S: Last Vital Signs Temp 97.8 F 12/01/19 11:09 Pulse 78 12/01/19 11:09 Resp 16 12/01/19 11:09 BP 135/66 12/01/19 11:09 Pulse Ox 99 12/01/19 11:09 - Orders/Labs/Meds Orders: Active Orders 24 hr Category Date Time Status CULTURE STREP A CONFIRMATION [RM] Stat Lab 12/01/19 10:55 Results STREP SCRN A RAPID W CULT CONF [RM] Stat Lab 12/01/19 10:55 Results Isolation [COMM] Routine Oth 12/01/19 10:43 Active Departure - Departure Time of Disposition: 11:41 Disposition: Home, Self-Care 01 Condition: Good Clinical Impression: Pharyngitis - Discharge Information *PRESCRIPTION DRUG MONITORING PROGRAM REVIEWED*: Not Applicable *COPY OF PRESCRIPTION DRUG MONITORING REPORT IN PATIENT LEXI: Not Applicable Instructions: Pharyngitis, [id number] Referrals: PCP,None [Primary Care Provider] - Nkechi Leblanc [Ordering Only Provider] - 2 Days Forms: ED Department Discharge Additional Instructions: The following information is given to patients seen in the emergency department who are being discharged to home. This information is to outline your options for follow-up care. We provide all patients seen in our emergency department with a follow-up referral. The need for follow-up, as well as the timing and circumstances, are variable depending upon the specifics of your emergency department visit. If you don't have a primary care physician on staff, we will provide you with a referral. We always advise you to contact your personal physician following an emergency department visit to inform them of the circumstance of the visit and for follow-up with them and/or the need for any referrals to a consulting specialist. The emergency department will also refer you to a specialist when appropriate. This referral assures that you have the opportunity for follow-up care with a specialist. All of these measure are taken in an effort to provide you with optimal care, which includes your follow-up. Under all circumstances we always encourage you to contact your private physician who remains a resource for coordinating your care. When calling for follow-up care, please make the office aware that this follow-up is from your recent emergency room visit. If for any reason you are refused follow-up, please contact the [facility] Emergency Department at and asked to speak to the emergency department charge nurse. Sepsis Event Note - Focused Exam Vital Signs: Vital Signs Temp Pulse Resp BP Pulse Ox 12/01/19 11:09 97.8 F 78 16 135/66 99 Date Exam was Performed: 12/01/19 Time Exam was Performed: 11:41 - My Orders Last 24 Hours: My Active Orders 12/01/19 10:55 CULTURE STREP A CONFIRMATION [RM] Stat STREP SCRN A RAPID W CULT CONF [RM] Stat - Assessment/Plan Last 24 Hours: My Active Orders 12/01/19 10:55 CULTURE STREP A CONFIRMATION [RM] Stat STREP SCRN A RAPID W CULT CONF [RM] Stat
[2019-12-01 11:51] VITALS: BP 135/83; PULSE 90
== END 2019-12-01 11:51 | disposition home or self-care (01) ==
LOC: MW.ED 10:40
DX: J02.9 Acute pharyngitis, unspecified (principal); E66.9 Obesity, unspecified; Z68.38 Body mass index [BMI] 38.0-38.9, adult
CPT/HCPCS: 87081; 87880-QW; 99283

== ENCOUNTER 2020-01-22 23:54 | Emergency (ER) | payer MEDICAID ==
--- NOTE | 2020-01-23 00:18 | EDM.PDOC ---
ED HPI GENERAL MEDICAL PROBLEM - General Chief Complaint: Skin Complaint Stated Complaint: INNER NOSE PAIN Time Seen by Provider: 01/22/20 23:56 Source of Information: Reports: Patient History Limitations: Reports: No Limitations - History of Present Illness Duration: Day(s): (five) Quality: Reports: Ache Severity: Mild Improves with: Reports: Heat Therapy Worsens with: Reports: None Associated Symptoms: Reports: No Other Symptoms left nare Pain Score (Numeric/FACES): 3 - Related Data Allergies Allergy/AdvReac Type Severity Reaction Status Date / Time No Known Allergies Allergy Verified 01/23/20 00:23 Home Meds: Home Meds cephALEXin [Keflex] 500 mg PO Q8H #21 cap 01/23/20 [Rx] Past Medical History - Past Health History Medical/Surgical History: Denies Medical/Surgical History HEENT History: Reports: Impaired Vision Other HEENT History: wears glasses Cardiovascular History: Reports: None Respiratory History: Reports: None Gastrointestinal History: Reports: None Genitourinary History: Reports: None 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) Other METALIZING SUPERVISOR History: Hyperplasia Musculoskeletal History: Reports: None Neurological History: Reports: None Psychiatric History: Reports: Anxiety, Bipolar, Depression Endocrine/Metabolic History: Reports: Obesity/BMI 30+ Hematologic History: Reports: None Immunologic History: Reports: None Oncologic (Cancer) History: Reports: None Dermatologic History: Reports: None - Infectious Disease History Infectious Disease History: Reports: Chicken Pox - Past Surgical History Head Surgeries/Procedures: Reports: None HEENT Surgical History: Reports: Adenoidectomy, Myringotomy w Tube(s), Tonsillectomy Cardiovascular Surgical History: Reports: None Respiratory Surgical History: Reports: None GI Surgical History: Reports: None Female Surgical History: Reports: D&C Other Female Surgeries/Procedures: hysteroscopy x3 Neurological Surgical History: Reports: None Musculoskeletal Surgical History: Reports: None Oncologic Surgical History: Reports: None Dermatological Surgical History: Reports: None Social & Family History - Family History Family Medical History: Noncontributory Cardiac: Reports: Hypertension, [place] Neurological: Reports: CVA Endocrine/Metabolic: Reports: Diabetes, type II - Caffeine Use Caffeine Use: Reports: Coffee, Energy Drinks, Soda, Tea Other Caffeine Use: 5-7 daily Caffeine Use Comment: 2drinks/day ED ROS GENERAL - Review of Systems Review Of Systems: Comprehensive ROS is negative, except as noted in HPI. ED EXAM, SKIN/RASH Exam: See Below Exam Limited By: No Limitations General Appearance: Alert, No Apparent Distress Nose: Nasal Tenderness, Nasal Swelling, Other (Right-sided swelling with nares being firm consistent with a early infection or small abscess. This is all on the mucosal surface.) Head: Atraumatic Neck: Normal Inspection, Lymphadenopathy (R) Respiratory/Chest: No Respiratory Distress Extremities: Normal Inspection Neurological: Alert, Oriented Psychiatric: Normal Affect Skin: Warm, Dry Course - Vital Signs Text/Narrative:: Starting patient on cephalexin recommend she use warm compresses 4 times a day. May take Tylenol as needed for the pain. She should return to ER if worse. Follow-up with PCP or ENT provider if symptoms continue. Last Recorded V/S: Last Vital Signs Temp 35.9 C L 01/23/20 00:23 Pulse 84 01/23/20 00:23 Resp 16 01/23/20 00:23 BP 131/54 L 01/23/20 00:23 Pulse Ox 97 01/23/20 00:23 Departure - Departure Time of Disposition: 00:38 Disposition: Home, Self-Care 01 Condition: Good Clinical Impression: Abscess of nose - Discharge Information Instructions: Skin Abscess Referrals: PCP,None [Primary Care Provider] - Forms: ED Department Discharge Additional Instructions: Warm compresses 4 times a day. Return to ER if worse. See PCP or ENT provider if not improving. Antibiotic as prescribed. Care Plan Goals: The following information is given to patients seen in the emergency department who are being discharged to home. This information is to outline your options for follow-up care. We provide all patients seen in our emergency department with a follow-up referral. The need for follow-up, as well as the timing and circumstances, are variable depending upon the specifics of your emergency department visit. If you don't have a primary care physician on staff, we will provide you with a referral. We always advise you to contact your personal physician following an emergency department visit to inform them of the circumstance of the visit and for follow-up with them and/or the need for any referrals to a consulting specialist. The emergency department will also refer you to a specialist when appropriate. This referral assures that you have the opportunity for follow-up care with a specialist. All of these measure are taken in an effort to provide you with optimal care, which includes your follow-up. Under all circumstances we always encourage you to contact your private physician who remains a resource for coordinating your care. When calling for follow-up care, please make the office aware that this follow-up is from your recent emergency room visit. If for any reason you are refused follow-up, please contact the [facility] Emergency Department at and asked to speak to the emergency department charge nurse. Sepsis Event Note - Focused Exam Vital Signs: Vital Signs Temp Pulse Resp BP Pulse Ox 01/23/20 00:23 35.9 C L 84 16 131/54 L 97 Date Exam was Performed: 01/23/20 Time Exam was Performed: 00:35
[2020-01-23] MEDS ORDERED: Cephalexin 500 MG Cap PO ONE (00:39)
[2020-01-23 00:50] VITALS: BP 125/54; PULSE 89
== END 2020-01-23 00:51 | disposition home or self-care (01) ==
LOC: MW.ED 23:54
DX: J34.0 Abscess, furuncle and carbuncle of nose (principal); E66.9 Obesity, unspecified; Z68.41 Body mass index [BMI] 40.0-44.9, adult
CPT/HCPCS: 99283; A9270; 99282